=== PATIENT | female | born 1975 | race African-American/Black ===

== ENCOUNTER 2019-03-04 23:12 | Emergency (ER) | payer OTHER ==
[2019-03-04] MEDS ORDERED: Lidocaine Viscous Sol 2% 15 ml UD Cup ONE (23:45)
[2019-03-04] MEDS ORDERED: Mag-Al Plus 1200 MG/1200 MG/120 MG/30 ML UDCUP ONE (23:45)
== END 2019-03-05 00:25 | disposition home or self-care (01) ==
LOC: SCSER 23:12
DX: K20.9 Esophagitis, unspecified (principal); J45.909 Unspecified asthma, uncomplicated; Z79.899 Other long term (current) drug therapy
CPT/HCPCS: 99283